=== PATIENT | male | born 1970 | race Caucasian/White ===

== ENCOUNTER → 2020-08-20 07:10 | Outpatient (CLI) | payer BC, SELFPAY ==
--- NOTE | 2020-08-20 07:23 | CT_ITS ---
PROCEDURE: CT ABDOMEN PELVIS WO CON CLINICAL INDICATION: GROSS HEMATURIA COMPARISON: No exams were available for comparison TECHNIQUE: Axial images obtained with sagittal and coronal reformats. All CT scans at the facility use one or more dose reduction, viz: automated exposure control, ma/kV adjustment per patient size (including targeted exams where dose is matched to indication, i.e. head), or iterative reconstruction technique. FINDINGS: LOWER THORAX: Coronary artery calcifications. Biventricular pacemaker device present. ABDOMEN & PELVIS: The maximum transverse dimension of the liver is 30 cm and cephalad caudad dimension of the right hepatic lobe is 20 cm indicating hepatomegaly. No focal liver lesion is apparent. The spleen, adrenal glands, and pancreas have an unremarkable appearance. A 4 mm stone is present in the distal left ureter. There is no hydronephrosis or hydroureter on either side. There is some minimal stranding of the periureteral fat in its mid aspect.. No obvious renal mass on this unenhanced exam. No intestinal obstruction or free air. No evidence of appendicitis or diverticulitis. Tiny umbilical hernia containing fat. No pelvic mass or abnormal fluid collection. There are few scattered small inguinal lymph nodes. No acute bony findings. IMPRESSION: Nonobstructing 4 mm left distal ureteral calculus approximately 2 cm proximal to the UVJ. There is some minimal stranding of the left periureteral fat in its mid aspect. No hydronephrosis or ureteral dilatation. No obvious renal calculi Dictated by: John Irwin MD 08/20/2020 15:42 John Irwin MD in [facility] 08/20/2020 15:42
== END ==
PROVIDERS: PCP Internal Medicine; Visit Provider Internal Medicine
DX: R31.0 Gross hematuria (principal)
CPT/HCPCS: 74176

== ENCOUNTER → 2021-01-07 09:51 | Outpatient (CLI) | payer BC, SELFPAY ==
--- NOTE | 2021-01-07 09:56 | XR_ITS ---
PROCEDURE: XR CHEST 2V CLINICAL HISTORY: COUGH.CONGESTION,RSV EXPOSURE COMPARISON: CR CXR CHEST(2 VIEWS-NOT PORTABLE) from 08/24/2015 FINDINGS: Mild cardiomegaly without failure. Biventricular pacemaker and right atrial lead noted from left subclavian approach. The lungs are clear without infiltrates, suspicious nodules, or pleural effusions. No acute bony abnormalities. IMPRESSION: Cardiomegaly, no acute finding Dictated by: John Irwin MD 01/07/2021 11:28 John Irwin MD in [facility] 01/07/2021 11:28
== END ==
PROVIDERS: PCP Internal Medicine; Visit Provider Internal Medicine
DX: R05.9 Cough, unspecified (principal); R09.89 Other specified symptoms and signs involving the circulatory and respiratory systems; Z20.828 Contact with and (suspected) exposure to other viral communicable diseases
CPT/HCPCS: 71046

== ENCOUNTER → 2021-01-07 10:39 | Outpatient (CLI) | payer BC, SELFPAY | PROVIDERS: PCP Internal Medicine; Visit Provider Internal Medicine | DX: Z20.822 Contact with and (suspected) exposure to COVID-19 (principal); U07.1 COVID-19 | CPT/HCPCS: C9803; U0003; U0005 ==

== ENCOUNTER 2021-01-13 10:09 | Outpatient (CLI) | payer BC, SELFPAY ==
[2021-01-13] VITALS (7 sets, daily range): BP systolic 90–107; BP diastolic 50–60; PULSE 64–74; RESP 16–20; TEMP 36.9; O2SAT 91–92
== END 2021-01-13 12:22 | disposition home or self-care (01) ==
PROVIDERS: PCP Internal Medicine; Visit Provider Internal Medicine
DX: U07.1 COVID-19 (principal); Z23 Encounter for immunization
CPT/HCPCS: 96365

== ENCOUNTER → 2021-12-17 12:29 | Outpatient (CLI) | payer BC, SELFPAY ==
[2021-12-17 13:12] LABS: Basophils # 0.1 K/mm3 (0-0.2); Basophils % 1.3 % (0.1-2.0); Eosinophils # 0.2 K/mm3 (0.0-0.4); Eosinophils % 2.4 % (0.1-12.0); Hematocrit 48.5 % (42.0-52.0); Hemoglobin 16.3 g/dL (14.1-18.0); Lymphocytes # 1.2 K/mm3 (0.7-4.5); Lymphocytes % 16.2 % (10-50); Mean Corpuscular HGB Conc 33.5 g/dL (31.8-35.4); Mean Corpuscular Hemoglobin 29.6 pg (27.0-31.2); Mean Corpuscular Volume 88.3 fl (80-94); Mean Platelet Volume 16.6 fl (7.4-10.4); Monocytes # 1.2 K/mm3 (0.1-1.0); Monocytes % 16.4 % (1.7-9.3); Neutrophils # 4.7 K/mm3 (1.8-7.8); Neutrophils % 63.8 % (37.0-80.0); Red Cell Distribution Width 13.8 % (11.5-17.5); White Blood Count 7.3 K/mm3 (4.8-10.8)
[2021-12-17 13:23] LABS: Chloride 106 mmol/L (98-107); Sodium 138 mmol/L (136-145)
[2021-12-17 13:24] LABS: Potassium 4.1 mmoL/L (3.5-5.1)
[2021-12-17 13:26] LABS: Alanine Aminotransferase 21 U/L (12-78); Albumin Level 3.8 g/dl (3.5-5.0); Albumin/Globulin Ratio 1.3 (1.1-1.8); Alkaline Phosphatase 72 U/L (38-126); Anion Gap 10.1 mEq/L (5-15); Aspartate Amino Transferase 29 U/L (17-59); Bilirubin,Total 0.6 mg/dl (0.2-1.3); Blood Urea Nitrogen 10 mg/dl (9-20); Carbon Dioxide 26 mmol/L (22.0-30.0); Cholesterol 197 mg/dl (140-200); Estimated Glomerular Filt Rate 118 ml/min (>60); GFR (African American) 143 ML/MIN (>60); Globulin 2.9 g/dL (1.3-3.2); Total Protein,Serum 6.7 g/dl (6.3-8.2); Triglycerides 103 mg/dl (30-150); VLDL Cholesterol 21 mg/dL (0-40)
[2021-12-17 13:27] LABS: Calcium 8.2 mg/dl (8.4-10.2); Chol/HDL Ratio 5.5 (1-3.5); Glucose 102 mg/dl (74-100); HDL Cholesterol 36 mg/dl (40-60)
[2021-12-17 13:38] LABS: Direct LDL Cholesterol 124.32 mg/dL (100-129)
[2021-12-17 14:27] LABS: Prostate Specific Ag Screen 0.4 ng/ml (0.0-4.0)
[2021-12-19 12:07] LABS: Platelet Count 36 K/mm3 (142-424)
== END ==
PROVIDERS: PCP Internal Medicine; Visit Provider Internal Medicine
DX: I50.22 Chronic systolic (congestive) heart failure (principal); E78.5 Hyperlipidemia, unspecified; E66.01 Morbid (severe) obesity due to excess calories; N40.1 Benign prostatic hyperplasia with lower urinary tract symptoms; Z12.5 Encounter for screening for malignant neoplasm of prostate
CPT/HCPCS: 80053; 80061; 85025; G0103